=== PATIENT | male | born 1980 | race American Indian/Alaskan Native ===

== ENCOUNTER 2019-04-15 14:27 | Emergency (ER) | payer OTHER ==
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
[2019-04-15] MEDS ORDERED: NAPROSYN PO ONE (16:23)
[2019-04-15 17:18] VITALS: BP 126/81
== END 2019-04-15 17:04 | disposition home or self-care (01) ==
LOC: ED 14:27
DX: S70.212A Abrasion, left hip, initial encounter (principal); S00.31XA Abrasion of nose, initial encounter; S00.81XA Abrasion of other part of head, initial encounter; Z79.899 Other long term (current) drug therapy; Z91.010 Allergy to peanuts; V49.49XA Driver injured in collision with other motor vehicles in traffic accident, initial encounter; Y93.89 Activity, other specified; Y92.410 Unspecified street and highway as the place of occurrence of the external cause; Y99.8 Other external cause status